=== PATIENT | female | born 1935 | race Caucasian/White ===

== ENCOUNTER 2018-04-12 10:37 | Outpatient (CLI) | payer MEDICARE ==
--- NOTE | 2018-04-12 13:51 | CT ---
ABDOMEN CT WITH CONTRAST PELVIC CT WITH CONTRAST: History: Left lower quadrant abdominal pain, intermittent for the past year. Comparison: None. Technique: Abdomen and pelvic CT performed with IV and oral contrast. Coronal reformatted images are submitted for interpretation. FINDINGS: ABDOMEN CT: Lung bases are clear. Intra and extrahepatic portal vein is patent. CT evidence of cholelithiasis without evidence of giovanna cystitis. Liver, spleen, pancreas, and adrenal glands have appropriate enhancement. No gastrohepatic, retrocrural or periportal lymphadenopathy. There are scattered nonspecific mesenteric lymph nodes. Correlate for mesenteric lymphadenitis. Gastric mucosa, duodenum, and multiple normal caliber small bowel loops are noted. Ileocecal junction is normal. The appendix is not appreciated. No inflammation of the cecal apex. Contrast and fecal ma terial in a nondistended, nondilated colon. There is sigmoid colon diverticulosis. No evidence of div erticulitis. Evaluation of the sigmoid colon is limited on the axial images due to beam attenuation a rtifact from left hip arthroplasty. Based on the coronal images, no obvious inflammatory process. Symmetric enhancement of the kidneys. Subcentimeter hypodensity in the right kidney cannot be further characterized. Bilaterally, no obstructive uropathy. PELVIC CT: Limited evaluation due to beam attenuation artifact. Urinary bladder is unremarkable. No pelvic mass, lymphadenopathy, free air or free fluid. Uterus is surgically absent. A soft tissue density on the l ateral aspect of the left hemipelvis likely representing a left ovary. No lytic or blastic lesions in the osseous structures. IMPRESSION: Limited evaluation of the left hemicolon. No acute abnormality is appreciated. There is diverticulosi s, without evidence of diverticulitis. POS: [facility]
== END 2018-04-12 10:38 | disposition home or self-care (01) ==
LOC: SCSCT 10:37
PROVIDERS: ATTEND Family Medicine
DX: K57.30 Diverticulosis of large intestine without perforation or abscess without bleeding (principal)
CPT/HCPCS: 74177; 82565

== ENCOUNTER 2018-09-13 09:46 | Emergency (ER) | payer MEDICARE ==
--- NOTE | 2018-09-13 11:28 | RAD ---
CHEST 2 VIEWS: Date: 09/13/18 HISTORY: Cough. COMPARISON: None. FINDINGS: Lungs are clear. No pneumothorax or effusion. Cardiac silhouette and mediastinal contours within norm al limits. No acute osseous abnormality. IMPRESSION: No acute intrathoracic abnormality. POS: [facility]
== END 2018-09-13 10:42 | disposition home or self-care (01) ==
LOC: SCSER 09:46
DX: J06.9 Acute upper respiratory infection, unspecified (principal); E78.00 Pure hypercholesterolemia, unspecified; F32.9 Major depressive disorder, single episode, unspecified; Z79.899 Other long term (current) drug therapy
CPT/HCPCS: 71046

== ENCOUNTER 2019-05-16 14:36 | Outpatient (CLI) | payer MEDICARE ==
--- NOTE | 2019-05-16 15:07 | BD ---
EXAM: DEXA bone density examination HISTORY: 83-year-old postmenopausal female for screening COMPARISON: None FINDINGS: L1--bone mineral density 1.055 g/sq cm; T score 0.6 L2--bone mineral density 0.929 g/sq cm; T score -0.9 L3--bone mineral density 1.020 g/sq cm; T score -0.6 L4--bone mineral density 0.968 g/sq cm; T score -0.8 Total L1-L4--bone mineral density 0.990 g/sq cm; T score -0.5 Right femoral neck--bone mineral density0.648; T score -1.8 Total proximal right femur--bone mineral density 0.745; T score -1.6 IMPRESSION: Osteopenia This patient has a 10 year WHO fracture risk of a major osteoporotic fracture of 24% and of a hip fracture of 15%.
== END 2019-05-16 14:37 | disposition home or self-care (01) ==
LOC: BICMAMMO 14:36
PROVIDERS: ATTEND Internal Medicine Rheumatology
DX: M81.0 Age-related osteoporosis without current pathological fracture (principal); M85.851 Other specified disorders of bone density and structure, right thigh
CPT/HCPCS: 77080

== ENCOUNTER 2020-06-22 10:58 | Outpatient (CLI) | payer MEDICARE ==
--- NOTE | 2020-06-22 11:31 | BD ---
EXAM: DEXA bone density examination HISTORY: 84-year-old postmenopausal female for screening COMPARISON: 05/16/2019 FINDINGS: L1--bone mineral density 0.969 g/sq cm; T score -0.2 L2--bone mineral density 0.91 g/sq cm; T score -0.4 L3--bone mineral density 1.042 g/sq cm; T score -0.4 L4--bone mineral density 0.994 g/sq cm; T score -0.6 Total L1-L4--bone mineral density 0.997 g/sq cm; T score -0.5 Right femoral neck--bone mineral density0.644; T score -1.8 Total proximal right femur--bone mineral density 0.723; T score -1.8 IMPRESSION: Osteopenia. This patient has a 10 year WHO fracture risk of a major osteoporotic fracture of 25% and of a hip fracture of 16%.
== END 2020-06-22 10:59 | disposition home or self-care (01) ==
LOC: BICMAMMO 10:58
PROVIDERS: ATTEND Internal Medicine Rheumatology
DX: M81.0 Age-related osteoporosis without current pathological fracture (principal); M85.851 Other specified disorders of bone density and structure, right thigh
CPT/HCPCS: 77080

== ENCOUNTER 2020-08-19 08:12 | Outpatient (CLI) | payer MEDICARE ==
--- NOTE | 2020-08-19 10:40 | ULT ---
ABDOMINAL ULTRASOUND: INDICATION: Chronic constipation. Abdominal pain. GERD. FINDINGS: There are numerous small gallstones seen in the gallbladder. Gallbladder wall is normal caliber rebekah ured at 3 mm. Aorta and IVC are partially obscured but appear unremarkable where visualized. Pancreas is mostly obscured but unremarkable as visualized. The liver and spleen appear unremarkable. Both kidneys are imaged and are unremarkable with no evidence of hydronephrosis or renal mass. IMPRESSION: Cholelithiasis. POS: [facility]
== END 2020-08-19 08:13 | disposition home or self-care (01) ==
LOC: SCSULT 08:12
PROVIDERS: ATTEND Internal Medicine Gastroenterology
DX: K21.9 Gastro-esophageal reflux disease without esophagitis (principal); R10.33 Periumbilical pain; K59.09 Other constipation; K80.20 Calculus of gallbladder without cholecystitis without obstruction
CPT/HCPCS: 93975

== ENCOUNTER 2020-08-28 12:56 | Outpatient (CLI) | payer MEDICARE ==
--- NOTE | 2020-08-28 13:35 | RAD ---
Exam: Lumbar spine 4 views HISTORY: Lumbar sacral radiculopathy. FINDINGS: 5 lumbar type vertebra. Mild bone demineralization. The AP projection, mild leftward curvat ure of the lumbar spine Visualized sacrum and bony pelvis are intact Spondylolisthesis: L1-L2: Neutral 4.1 mm retrolisthesis, flexion 3.9 mm retrolisthesis, extension 3.3 mm of retrolisthes is L4-L5: Neutral 4 mm of anterolisthesis, flexion 5.3 mm of anterolisthesis, extension 3.5 mm of alvarado listhesis Hypertrophic changes of posterior elements at L3-L4, L4-L5 and L5-S1. IMPRESSION: Spondylolisthesis as above.
--- NOTE | 2020-08-28 14:15 | MRI ---
MRI LUMBAR SPINE NONCONTRAST: DATE: 08/28/2020 HISTORY: 84-year-old female with ICD-10: "M 47.27 lumbosacral spondylosis with radiculopathy" COMPARISON: None available FINDINGS: For the purposes of this report, it will be assumed that there are 5 lumbar-type vertebrae. Vertebral body heights are maintained. Conus medullaris terminates at L1-2. Left lateral curvature of lumbar spine. This results in asymmetr ically severe right-sided degenerative changes along the concavity of curvature, along the upper and mid lumbar spine. T12-L1:Severe disc space narrowing. Numerous tiny endplate defects on the left side. Slight retrolist hesis of T12 on L1. Circumferential broad-based disc-osteophyte complex indents ventral aspect of thecal sac. No central spinal canal stenosis. Mild to moderate bilateral neural foraminal stenosis. M odic type I endplate marrow changes. 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 L1-2: Severe disc space narrowing. Numerous tiny endplate defects on the left side. Slight retrolisth esis of L1 on L2. Circumferential broad-based disc-osteophyte complex indents ventral aspect of thecal sac. Mild central spinal canal stenosis. Moderate severe right and moderate left neural forami nal stenosis. L2-3:Severe right-sided disc space narrowing prominent right-sided Modic type I endplate marrow edema . Diffuse disc bulge. Mild to moderate bilateral ligamentum flavum thickening. Mild bilateral facet DJD. Moderate to severe right and moderate left neural foraminal stenosis. Severe central spinal salima l stenosis. L3-4:Severe left and mild right facet DJD results in minimal grade 1 anterolisthesis of L3 on L4. Mil d disc space narrowing. Diffuse disc bulge. Moderate bilateral neural foraminal stenosis. Moderate ligamentum flavum thickening. 5 mm synovial cyst at the anteromedial edge of left facet complex. Paula re central spinal canal stenosis with crowding of cauda equina, worse than at L2-3 level. L4-5:Severe right and moderate left facet DJD result in grade 1 anterolisthesis of L4 on L5. Mild dis c space narrowing. Disc bulge. Moderate bilateral neural foraminal stenosis. Moderate ligamentum flavum thickening. Lateral recess stenosis, right greater than left. Moderate facet central spinal ca nal stenosis. L5-S1:Disc space maintained. Bilateral neural foraminal stenosis, right greater than left. Mild bilat eral neural foraminal stenosis. No central spinal canal stenosis. IMPRESSION: 1) lumbar spondylosis with multilevel high-grade degenerative disc disease (especially in the upper a nd mid levels) and multilevel high-grade facet osteoarthrosis. 2) mild lateral curvature. 3) severe central spinal canal stenosis at L3-4 and L2-3, and moderate central spinal canal stenosis at L4-5.
== END 2020-08-28 12:57 | disposition home or self-care (01) ==
LOC: BICMRI 12:56
PROVIDERS: ATTEND Anesthesiology Pain Medicine
DX: M47.22 Other spondylosis with radiculopathy, cervical region (principal); M47.27 Other spondylosis with radiculopathy, lumbosacral region; M43.16 Spondylolisthesis, lumbar region; M51.16 Intervertebral disc disorders with radiculopathy, lumbar region
CPT/HCPCS: 72110; 72148